=== PATIENT | male | born 1940 ===

== ENCOUNTER 2016-11-11 05:51 | Day surgery (SDC) | payer MEDICARE ==
[2016-11-11] MEDS ORDERED: DIPRIVAN 200 MG/20 ML IV ONE (05:52)
[2016-11-11] MEDS ORDERED: Ketamine HCl 50 MG/ML IV ONE (05:52)
[2016-11-11] MEDS ORDERED: Lactated Ringers 1,000 ML IV SCH (06:00)
[2016-11-11 06:20] VITALS: O2SAT 96
--- NOTE | 2016-11-11 07:40 | OP ---
SURGERY DATE/TIME: 11/11/2016 0700 PREOPERATIVE DIAGNOSIS: Screening colonoscopy. POSTOPERATIVE DIAGNOSIS: Normal colon. PROCEDURE: Colonoscopy. SURGEON: Manjit Ro M.D. ANESTHESIA: MAC by Justus Amor CRNA. ESTIMATED BLOOD LOSS: None. SPECIMENS: None. DESCRIPTION OF PROCEDURE: After informed written consent was obtained, the patient was taken to the endoscopy suite. He underwent monitored anesthesia and a digital rectal exam showed normal sphincter tone and no internal lesions. The scope was inserted into the rectum and sequentially the entire colonic mucosa was traversed. The level of cecum was reached and verified with direct visualization of ileocecal valve. Upon withdrawal careful mucosal inspection revealed no gross abnormalities. Retroflexion was performed prior to withdrawal and was within normal limits. The scope was removed and the patient was transferred to the recovery room in excellent condition.
[2016-11-11] MEDS ORDERED: Lactated Ringers 1,000 ML IV ONE (08:00)
[2016-11-11 08:36] VITALS: BP 141/67; PULSE 63
== END 2016-11-11 08:46 | disposition home or self-care (01) ==
LOC: SDC 05:51
PROVIDERS: ATTEND Family Medicine
PROC: 0DJD8ZZ Inspection of Lower Intestinal Tract, Via Natural or Artificial Opening Endoscopic (ICD-10-PCS; principal; 2016-11-11)
DX: Z12.11 Encounter for screening for malignant neoplasm of colon (principal); I10 Essential (primary) hypertension
CPT/HCPCS: 00810; 99100; J2704

== ENCOUNTER 2017-11-29 05:58 | Emergency (ER) | payer MEDICARE ==
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
[2017-11-29 08:48] VITALS: BP 163/81; PULSE 60; O2SAT 97
== END 2017-11-29 08:20 | disposition home or self-care (01) ==
LOC: ED 05:58
DX: S46.911A Strain of unspecified muscle, fascia and tendon at shoulder and upper arm level, right arm, initial encounter (principal); M54.2 Cervicalgia; M79.631 Pain in right forearm; V43.52XA Car driver injured in collision with other type car in traffic accident, initial encounter; Z79.899 Other long term (current) drug therapy
CPT/HCPCS: 71046; 72072; 72125; 99284